=== PATIENT | male | born 1940 | race Caucasian/White ===

== ENCOUNTER 2016-07-25 20:23 | Inpatient (IN) | payer MEDICARE, BC ==
[2016-07-25] VITALS (9 sets, daily range): BP systolic 116–213; BP diastolic 48–108
[~2016-07-25] VITALS: Ht 172.7 cm; Wt 97.5 kg
--- NOTE | ~2016-07-25 | EKG ---
[place], [place] ELECTROCARDIOGRAM REPORT NAME: NICOLE AMBROSE UNIT #: [id number] ROOM: [id number] DOCTOR: NATE YANEZ MD BIRTHDATE: [birth year] DOS: 07/25/2016 TIME: 2033 hours. FINDINGS: 1. Normal sinus rhythm at rate 79. 2. Baseline artifact otherwise normal. NATE YANEZ MD CM:EKGRPT:ELECTROCARDIOGRAM REPORT [id number] NATE YANEZ MD
[~2016-07-25 20:23] MED LIST: ASPIRIN81 M1 PO; GLUCOTROL5 MG PO; VASOTEC20 MG PO
[2016-07-25 20:37] LABS: BASO # 0.1 10*3/uL (0.0-0.1); BASO % 0.9 % (0.0-1.0); EOS # 0.2 10*3/uL (0.0-0.4); EOS % 1.4 % (1.0-4.0); HEMOGLOBIN 17.7 g/dl (14.0-18.0); IG # 0.1 10*3/uL (0.0-0.1); LYMPH # 3.2 10*3/uL (1.3-4.4); LYMPH % 30.2 % (27.0-41.0); MEAN CELL VOLUME 85.3 fl (80.0-94.0); MEAN CORPUSCULAR HGB 29.6 pg (27.0-31.0); MEAN CORPUSCULAR HGB CONC 34.7 g/dl (33.0-37.0); MEAN PLATELET VOLUME 10.8 fl (9.6-12.3); MONO # 0.7 10*3/uL (0.1-1.0); MONO % 6.4 % (3.0-9.0); NEUT # 6.4 10*3/uL (2.3-7.9); NEUT % 60.6 % (47.0-73.0); PLATELET COUNT AUTOMATED 208 10*3/uL (130-400); RED BLOOD COUNT 5.98 10*6/uL (4.50-5.90); RED CELL DISTRI WIDTH 12.8 % (0-14.5); WHITE BLOOD COUNT 10.5 10*3/uL (4.8-10.8)
[2016-07-25 20:47] LABS: PROTHROMBIN TIME 10.5 SECONDS (9.0-12.4)
[2016-07-25 20:54] LABS: ALBUMIN 3.6 gm/dl (3.1-4.5); ALKALINE PHOSPHATASE 104 U/L (45-117); BILIRUBIN, TOTAL 0.4 mg/dl (0.2-1.0); BUN 18 mg/dl (7-24); CARBON DIOXIDE 28 mmol/L (21-32); CHLORIDE 98 mmol/L (98-107); EST GLOM FILT AFRICAN AMERICAN > 60 ml/min; GLUCOSE 302 mg/dL (65-99); MAGNESIUM 2.1 mg/dL (1.5-2.1); POTASSIUM 4.5 mmol/L (3.5-5.1); SGOT/AST 21 IU/L (3-35); SGPT/ALT 40 U/L (12-78); SODIUM 136 mmol/L (136-145); TOTAL PROTEIN 7.8 gm/dL (6.4-8.2)
[2016-07-25 21:00] LABS: TROPONIN I < 0.015 ng/ml (<0.045)
[2016-07-26 06:24] LABS: BASO # 0.1 10*3/uL (0.0-0.1); EOS # 0.2 10*3/uL (0.0-0.4); EOS % 2.2 % (1.0-4.0); HEMATOCRIT 50.2 % (42.0-52.0); HEMOGLOBIN 16.8 g/dl (14.0-18.0); LYMPH # 2.7 10*3/uL (1.3-4.4); LYMPH % 30.8 % (27.0-41.0); MEAN CORPUSCULAR HGB 29.1 pg (27.0-31.0); MEAN CORPUSCULAR HGB CONC 33.5 g/dl (33.0-37.0); MEAN PLATELET VOLUME 10.7 fl (9.6-12.3); MONO # 0.6 10*3/uL (0.1-1.0); MONO % 6.7 % (3.0-9.0); NEUT # 5.3 10*3/uL (2.3-7.9); PLATELET COUNT AUTOMATED 198 10*3/uL (130-400); RED BLOOD COUNT 5.77 10*6/uL (4.50-5.90); RED CELL DISTRI WIDTH 12.9 % (0-14.5); WHITE BLOOD COUNT 8.9 10*3/uL (4.8-10.8)
[2016-07-26 06:37] LABS: BUN 17 mg/dl (7-24); CARBON DIOXIDE 29 mmol/L (21-32); CHLORIDE 102 mmol/L (98-107); CHOLESTEROL 180 mg/dL (<200); EST GLOM FILT AFRICAN AMERICAN > 60 ml/min; FREE T4 1.02 ng/dl (0.76-1.46); GLUCOSE 237 mg/dL (65-99); HDL CHOLESTEROL 37 mg/dl (40-60); LDL CHOLESTEROL 110 mg/dL (9-159); POTASSIUM 4.9 mmol/L (3.5-5.1); SODIUM 137 mmol/L (136-145); TRIGLYCERIDES 163 mg/dl (<150); VLDL CHOLESTEROL 33 mg/dL (6-40)
[2016-07-26 06:47] LABS: TROPONIN I < 0.015 ng/ml (<0.045)
[2016-07-26 06:55] LABS: HEMOGLOBIN A1c 9.6 % (4.8-5.6)
[2016-07-26 08:00] VITALS: BP 143/67
[2016-07-26 12:00] VITALS: BP 150/65
[2016-07-26 16:00] VITALS: BP 105/55
[2016-07-26 20:00] VITALS: BP 125/75
[2016-07-27] VITALS: BP 136/54
[2016-07-27 08:00] VITALS: BP 139/73
[2016-07-27] MEDS ORDERED: LOPRESSOR25 MG PO (09:32)
[2016-07-27] MEDS ORDERED: ASPIRIN ADULT L81 M2 PO (09:32)
[2016-07-27] MEDS ORDERED: METFORMIN1000 MG PO (09:32)
[2016-07-27] MEDS ORDERED: SIMVASTATIN20 MG PO (09:32)
[2016-07-27] MEDS ORDERED: LISINOPRIL10 M1 PO (09:32)
[2016-07-27] MEDS ORDERED: NATURE'S BLEN1000 IU PO (09:36)
== END 2016-07-27 11:22 | disposition home or self-care (01) | DRG 880 ==
LOC: ED 20:23 → EDHOLD 21:12 → 5E 21:12
PROVIDERS: Emergency Medicine Emergency Medical Services; Internal Medicine
DX: F41.9 Anxiety disorder, unspecified (principal); E11.65 Type 2 diabetes mellitus with hyperglycemia; I16.1 Hypertensive emergency; R07.89 Other chest pain; F17.210 Nicotine dependence, cigarettes, uncomplicated; E78.2 Mixed hyperlipidemia; E55.9 Vitamin D deficiency, unspecified; Z66 Do not resuscitate; Z86.73 Personal history of transient ischemic attack (TIA), and cerebral infarction without residual deficits; Z88.0 Allergy status to penicillin; Z82.49 Family history of ischemic heart disease and other diseases of the circulatory system; Z82.3 Family history of stroke

== ENCOUNTER 2017-07-03 09:59 | Inpatient (IN) | payer MEDICARE, BC ==
[~2017-07-03] VITALS: Ht 172.7 cm; Wt 95.5 kg
[2017-07-03] VITALS (7 sets, daily range): BP systolic 147–210; BP diastolic 60–97
[~2017-07-03 09:59] MED LIST changes: +ASPIRIN ADULT L81 M2 PO; +LISINOPRIL10 M1 PO; +LOPRESSOR25 MG PO; +METFORMIN1000 MG PO; +NATURE'S BLEN1000 IU PO; +SIMVASTATIN20 MG PO
[2017-07-03 10:50] LABS: BASO # 0.1 10*3/uL (0.0-0.1); BASO % 0.9 % (0.0-1.0); EOS # 0.1 10*3/uL (0.0-0.4); EOS % 1.1 % (1.0-4.0); HEMATOCRIT 51.8 % (42.0-52.0); HEMOGLOBIN 17.4 g/dl (14.0-18.0); LYMPH % 22.3 % (27.0-41.0); MEAN CELL VOLUME 87.9 fl (80.0-94.0); MEAN CORPUSCULAR HGB 29.5 pg (27.0-31.0); MEAN CORPUSCULAR HGB CONC 33.6 g/dl (33.0-37.0); MEAN PLATELET VOLUME 10.9 fl (9.6-12.3); MONO # 0.5 10*3/uL (0.1-1.0); MONO % 5.5 % (3.0-9.0); NEUT # 6.2 10*3/uL (2.3-7.9); PLATELET COUNT AUTOMATED 186 10*3/uL (130-400); RED BLOOD COUNT 5.89 10*6/uL (4.50-5.90); RED CELL DISTRI WIDTH 12.7 % (0-14.5); WHITE BLOOD COUNT 8.8 10*3/uL (4.8-10.8)
[2017-07-03 11:06] LABS: ALBUMIN 3.4 gm/dl (3.1-4.5); ALKALINE PHOSPHATASE 96 U/L (45-117); BUN 12 mg/dl (7-24); CHLORIDE 102 mmol/L (98-107); CREATININE 0.87 mg/dL (0.70-1.30); LIPASE 96 U/L (73-393); POTASSIUM 4.1 mmol/L (3.5-5.1); SGOT/AST 14 IU/L (3-35); SGPT/ALT 32 U/L (12-78); SODIUM 137 mmol/L (136-145); TOTAL PROTEIN 7.3 gm/dL (6.4-8.2)
[2017-07-03 11:07] LABS: TROPONIN I < 0.015 ng/ml (<0.045)
[2017-07-03 11:23] LABS: ACT PARTIAL THROMBO TIME 23.1 SECONDS (20.8-31.5)
[2017-07-04] VITALS: BP 116/63
[2017-07-04 07:44] LABS: BASO # 0.1 10*3/uL (0.0-0.1); BASO % 1.1 % (0.0-1.0); EOS # 0.2 10*3/uL (0.0-0.4); EOS % 2.1 % (1.0-4.0); HEMATOCRIT 52.2 % (42.0-52.0); HEMOGLOBIN 17.5 g/dl (14.0-18.0); LYMPH # 2.5 10*3/uL (1.3-4.4); LYMPH % 28.4 % (27.0-41.0); MEAN CELL VOLUME 88.5 fl (80.0-94.0); MEAN CORPUSCULAR HGB 29.7 pg (27.0-31.0); MEAN CORPUSCULAR HGB CONC 33.5 g/dl (33.0-37.0); MEAN PLATELET VOLUME 11.1 fl (9.6-12.3); MONO # 0.5 10*3/uL (0.1-1.0); MONO % 5.9 % (3.0-9.0); NEUT # 5.5 10*3/uL (2.3-7.9); NEUT % 62.3 % (47.0-73.0); PLATELET COUNT AUTOMATED 224 10*3/uL (130-400); WHITE BLOOD COUNT 8.9 10*3/uL (4.8-10.8)
[2017-07-04 08:00] VITALS: BP 112/56
[2017-07-04 08:15] LABS: ALBUMIN 3.3 gm/dl (3.1-4.5); BUN 14 mg/dl (7-24); CHLORIDE 101 mmol/L (98-107); CHOLESTEROL 176 mg/dL (<200); FREE T4 1.07 ng/dl (0.76-1.46); HDL CHOLESTEROL 35 mg/dl (40-60); PHOSPHOROUS 2.7 mg/dL (2.5-4.9); POTASSIUM 3.8 mmol/L (3.5-5.1); SGOT/AST 14 IU/L (3-35); SGPT/ALT 30 U/L (12-78); SODIUM 136 mmol/L (136-145); TOTAL PROTEIN 7.1 gm/dL (6.4-8.2)
[2017-07-04 08:21] LABS: ALKALINE PHOSPHATASE 85 U/L (45-117)
[2017-07-04 08:28] LABS: VITAMIN D, 25-HYDROXY 22.9 ng/mL (30-100)
[2017-07-04 08:37] LABS: LDL CHOLESTEROL 105 mg/dL (9-159); TRIGLYCERIDES 179 mg/dl (<150); VLDL CHOLESTEROL 36 mg/dL (6-40)
[2017-07-04 08:38] LABS: CREATININE 0.94 mg/dL (0.70-1.30)
[2017-07-04 12:00] VITALS: BP 113/50
[2017-07-04 16:00] VITALS: BP 116/60
[2017-07-04 20:08] VITALS: BP 125/50
[2017-07-05] VITALS: BP 118/52
[2017-07-05 08:00] VITALS: BP 140/71
[2017-07-05] MEDS ORDERED: Vitamin D PO (11:13)
[2017-07-05] MEDS ORDERED: ASPIRIN CHEWABL81 M1 PO (11:13)
[2017-07-05] MEDS ORDERED: LOPRESSOR25 MG PO (11:13)
[2017-07-05] MEDS ORDERED: LISINOPRIL10 M1 PO (11:13)
[2017-07-05] MEDS ORDERED: SIMVASTATIN40 MG PO (11:13)
== END 2017-07-05 12:42 | disposition home health service (06) | DRG 554 ==
LOC: ED 09:59 → 4E 13:28
PROVIDERS: Emergency Medicine; Registered Nurse
DX: M17.11 Unilateral primary osteoarthritis, right knee (principal); E11.65 Type 2 diabetes mellitus with hyperglycemia; I16.0 Hypertensive urgency; I10 Essential (primary) hypertension; E55.9 Vitamin D deficiency, unspecified; R26.81 Unsteadiness on feet; S89.91XA Unspecified injury of right lower leg, initial encounter; E78.2 Mixed hyperlipidemia; G89.29 Other chronic pain; R29.6 Repeated falls; F17.210 Nicotine dependence, cigarettes, uncomplicated; F10.21 Alcohol dependence, in remission; Z60.2 Problems related to living alone; M25.569 Pain in unspecified knee; W18.39XA Other fall on same level, initial encounter; Y93.89 Activity, other specified; Y92.89 Other specified places as the place of occurrence of the external cause; Y99.8 Other external cause status; Z86.73 Personal history of transient ischemic attack (TIA), and cerebral infarction without residual deficits; Z80.1 Family history of malignant neoplasm of trachea, bronchus and lung; Z82.3 Family history of stroke; Z82.49 Family history of ischemic heart disease and other diseases of the circulatory system; Z88.0 Allergy status to penicillin; Z71.6 Tobacco abuse counseling